=== PATIENT | female | born 1985 | race African-American/Black ===

== ENCOUNTER 2017-11-24 00:55 | Emergency (ER) | payer MEDICAID ==
[~2017-11-24] VITALS: Ht 162.6 cm; Wt 62.1 kg
[2017-11-24 01:10] VITALS: BP 103/68
[2017-11-24 01:20] VITALS: BP 103/68
--- NOTE | 2017-11-24 01:22 | Emergency Room Report ---
History of Present Illness General Chief Complaint: General Complaint Source: Patient Present Illness HPI Is a 32-year-old female with no past medical history. She presents with chief complaint of "I want his physical checkup and annual exam." She said that she hasn't seen a doctor in a while and want to be checked out. She has no complaint. She did point out that she had surgery on her right knee 8 months ago and wanted me to take a look at it. She has no complaint patient walk without a problem. She wanted blood work and STD checks. When I ask her if she had any complaints, she said no. She decided at 1 AM to come in for checkup because she was a nearby. Allergies: Coded Allergies: No Known Allergies (Unverified , 11/24/17) Patient History Past Medical History: see triage record, old chart reviewed Past Surgical History: other Pertinent Family History: none Social History: Denies: smoking Last Menstrual Period: 11/22/17 Now: No Immunizations: other Reviewed Nursing Documentation: PMH: Agreed; PSxH: Agreed Nursing Documentation-PMH Past Medical History: No Stated History Review of Systems Eye: Denies: eye pain, blurred vision ENT: Denies: ear pain, nose congestion, throat swelling Respiratory: Denies: cough, shortness of breath Cardiovascular: Denies: chest pain, palpitations Gastrointestinal: Denies: abdominal pain, diarrhea, nausea, vomiting Musculoskeletal: Denies: back pain, joint pain Skin: Denies: rash Neurological: Denies: headache, numbness Endocrine: Denies: increased thirst, increased urine Hematologic/Lymphatic: Denies: easy bruising All Other Systems: negative except mentioned in HPI Physical Exam Vital Signs Date Time Temp Pulse Resp B/P (MAP) Pulse Ox O2 Delivery O2 Flow Rate FiO2 11/24/17 00:59 97.7 69 16 104/68 97 Room Air 97.7 vitals normal Sp02 EP Interpretation: reviewed, normal General Appearance: well appearing, no apparent distress, alert Head: normocephalic, atraumatic Eyes: bilateral eye PERRL, bilateral eye EOMI ENT: hearing grossly normal, normal pharynx Neck: full range of motion, supple, no meningismus Respiratory: chest non-tender, lungs clear, normal breath sounds Cardiovascular #1: regular rate, rhythm, no murmur Gastrointestinal: normal bowel sounds, non tender, no mass, no organomegaly, no bruit, non-distended Musculoskeletal: back normal, gait/station normal, normal range of motion Psychiatric: mood/affect normal Skin: warm/dry Medical Decision Making Diagnostic Impression: Primary Impression: Encounter for medical screening examination ER Course Patient here for routine exam. I see no issue as far as cardiac or lung exam. She has no respiratory distress. Her knee show no evidence of any trauma or infection. Explained to the patient that in the ER, we don't said routine bloodwork or STD checks. She can either go to her primary care doctor or clinic. There is no emergent issue that needs to be addressed at this moment in time. patient then got up and walked out of the ER. Last Vital Signs Date Time Temp Pulse Resp B/P (MAP) Pulse Ox O2 Delivery O2 Flow Rate FiO2 11/24/17 00:59 97.7 69 16 104/68 97 Room Air 97.7 Status: unchanged Disposition: HOME, SELF-CARE Condition: Stable LETICIA WESTON M.D. Nov 24, 2017 01:22
== END 2017-11-24 01:20 | disposition home or self-care (01) ==
LOC: EMR 01:00
DX: Z04.8 Encounter for examination and observation for other specified reasons (principal)
CPT/HCPCS: 99281